=== PATIENT | male | born 1980 | race Caucasian/White ===

== ENCOUNTER 2016-12-01 12:59 | Emergency (ER) | payer OTHER ==
[~2016-12-01] VITALS: Ht 180.3 cm; Wt 113.4 kg
[~2016-12-01 12:59] MED LIST: PROVENTIL2.5 MG/3 M INH; RANITIDINE300 M1 PO; [UNRECOGNIZED DRUG - OTHER]
[2016-12-01 13:06] VITALS: BP 169/102
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
[2016-12-01] MEDS ORDERED: HYDROcodone/APAP 10/325 MG 1 TAB TAB PO ONE (13:15)
[2016-12-01] MEDS ORDERED: METHOCARBAMOL 500 MG TAB PO SCH (13:15)
--- NOTE | 2016-12-01 13:26 | NUR ---
PT WENT TO XRAY ACCOMPANIED BY IMPLEMENTATION DIRECTOR.
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
--- NOTE | 2016-12-01 13:55 | NUR ---
BACK FROM XRAY ACCOMPANIED BY AREA REPRESENTATIVE';NO ACUTE DISTRESS NOTED AT THIS TIME;WILL CONTINUE TO MONITOR PT.
--- NOTE | 2016-12-01 13:59 | NUR ---
PT AMBULATED TO RESTROOM;NO ACUTE DISTRESS NOTED AT THIS TIME;WILL CONTINUE TO MONITOR PT.
--- NOTE | 2016-12-01 14:29 | NUR ---
DR GERMAN AT BEDSIDE
--- NOTE | 2016-12-01 14:39 | NUR ---
Patient discharged with v/s stable. Written and verbal after care instructions given and explained. Patient alert, oriented and verbalized understanding of instructions. Ambulatory with steady gait. All questions addressed prior to discharge. ID band removed. Patient advised to follow up with PMD. Rx of ROBAXIN,MOTRIN AND NORCO given. Patient educated on indication of medication including possible reaction and side effects. Opportunity to ask questions provided and answered.ADVISED PT TO REFRAIN FROM STRENOUS ACTIVITIES UNTIL PAIN SUBSIDE.
[2016-12-01 14:40] VITALS: BP 153/95
== END 2016-12-01 14:39 | disposition home or self-care (01) ==
LOC: MED 12:59
DX: S30.0XXA Contusion of lower back and pelvis, initial encounter (principal); S80.02XA Contusion of left knee, initial encounter; S80.01XA Contusion of right knee, initial encounter; S09.90XA Unspecified injury of head, initial encounter; J45.909 Unspecified asthma, uncomplicated; Y04.0XXA Assault by unarmed brawl or fight, initial encounter; Y93.89 Activity, other specified; Y92.89 Other specified places as the place of occurrence of the external cause; Y99.8 Other external cause status

== ENCOUNTER 2017-06-16 21:41 | Emergency (ER) | payer OTHER ==
[~2017-06-16] VITALS: Ht 175.3 cm; Wt 106.6 kg
[~2017-06-16 21:41] MED LIST changes: +PRON INH; -PROVENTIL2.5 MG/3 M INH; -RANITIDINE300 M1 PO; -[UNRECOGNIZED DRUG - OTHER]
[2017-06-16 21:49] VITALS: BP 127/69
--- NOTE | 2017-06-16 23:24 | NUR ---
PT TAKEN TO OF2
--- NOTE | 2017-06-16 23:32 | NUR ---
Dr. Garcia evaluating patient
[2017-06-17] MEDS ORDERED: LIDOCAINE 1% 500 MG/50 ML VIAL INJ ONE (00:05)
[2017-06-17] MEDS ORDERED: oxyCODONE/APAP 5/325 MG 1 TAB TAB PO ONE (00:05)
[2017-06-17 00:50] VITALS: BP 131/67
--- NOTE | 2017-06-17 00:50 | NUR ---
Patient discharged with v/s stable. Written and verbal after care instructions given and explained. Patient verbalized understanding. Ambulatory with steady gait. All questions addressed prior to discharge. Advised to follow up with PMD.
== END 2017-06-17 00:50 | disposition home or self-care (01) ==
LOC: MED 21:41
DX: S61.211A Laceration without foreign body of left index finger without damage to nail, initial encounter (principal); J45.909 Unspecified asthma, uncomplicated; I10 Essential (primary) hypertension; Z79.899 Other long term (current) drug therapy; W27.8XXA Contact with other nonpowered hand tool, initial encounter; Y93.89 Activity, other specified; Y92.89 Other specified places as the place of occurrence of the external cause; Y99.8 Other external cause status
CPT/HCPCS: 12001; 99283; J2001

== ENCOUNTER 2022-10-20 12:40 | Emergency (ER) | payer OTHER ==
[~2022-10-20] VITALS: Ht 177.8 cm; Wt 91.7 kg
[2022-10-20 12:43] VITALS: BP 138/82
[2022-10-20] MEDS ORDERED: NACL 0.9% 1,000 ML IV ONE (12:45)
--- NOTE | 2022-10-20 12:49 | NUR ---
42/M WALKED IN C/O RIGHT CALF PAIN AND REDNESS ONSET 3 DAYS. WARM TO TOUCH. AAO4, AMBULATORY, VITALS STABLE. PMH: ASTHMA
[2022-10-20] MEDS ORDERED: cefTRIAXone 1,000 MG VIAL ONE (12:52)
[2022-10-20] MEDS ORDERED: SULF-58 PO (13:06)
[2022-10-20] MEDS ORDERED: CEPH-588 PO (13:06)
[2022-10-20] MEDS ORDERED: IBUP-1842 PO (13:06)
[2022-10-20] MEDS ORDERED: KETOROLAC 30 MG/ML VIAL IVP ONE (13:15)
[2022-10-20] MEDS ORDERED: KETOROLAC 30 MG/ML VIAL IM ONE (13:15)
[2022-10-20 14:05] VITALS: BP 137/75
== END 2022-10-20 14:05 | disposition home or self-care (01) ==
LOC: MED 12:40
DX: L03.115 Cellulitis of right lower limb (principal); J45.909 Unspecified asthma, uncomplicated; I10 Essential (primary) hypertension; Z79.899 Other long term (current) drug therapy
CPT/HCPCS: 96365; 96375; 99284; J0696; J1885; J7030

== ENCOUNTER 2023-10-15 15:33 | Emergency (ER) | payer OTHER ==
[~2023-10-15] VITALS: Ht 177.8 cm; Wt 79.4 kg
[~2023-10-15 15:33] MED LIST changes: +CEPH-588 PO; +IBUP-1842 PO; +SULF-58 PO
[2023-10-15 15:38] VITALS: BP 122/74; PULSE 106; RESP 22; TEMP 97.8; O2SAT 93
[2023-10-15] MEDS ORDERED: ALBUTEROL SULFATE/IPRATROPIU 3 ML SOL IH ONE ×3 (15:38→16:00)
[2023-10-15 15:40] VITALS: BP 120/80; TEMP 97.8
[2023-10-15] MEDS ORDERED: ALBUTEROL 0.083% 2.5 MG/3 ML NEBU INH ONE ×2 (15:40→16:00)
[2023-10-15] MEDS ORDERED: predniSONE 20 MG TAB PO ONE (15:40)
[2023-10-15 15:42] VITALS: PULSE 103; RESP 22; O2SAT 92
[2023-10-15] MEDS ORDERED: ALBU0.0912 INH (16:16)
[2023-10-15] MEDS ORDERED: PRED20TA5 PO (16:16)
[2023-10-15 16:51] VITALS: PULSE 102; RESP 18; O2SAT 98
== END 2023-10-15 17:30 | disposition home or self-care (01) ==
LOC: MED 15:33
DX: J45.901 Unspecified asthma with (acute) exacerbation (principal); F17.200 Nicotine dependence, unspecified, uncomplicated; Z79.899 Other long term (current) drug therapy; Z79.2 Long term (current) use of antibiotics; Z79.1 Long term (current) use of non-steroidal anti-inflammatories (NSAID)
CPT/HCPCS: 94640; 99284; J7512; J7613

== ENCOUNTER 2023-12-21 20:00 | Emergency (ER) | payer OTHER ==
[~2023-12-21] VITALS: Ht 177.8 cm; Wt 84.4 kg
[~2023-12-21 20:00] MED LIST changes: +ALBU0.0912 INH; +PRED20TA5 PO
[2023-12-21 20:10] VITALS: BP 114/73; PULSE 101; RESP 18; TEMP 97.7; O2SAT 96
[2023-12-21] MEDS: ALBUTEROL 0.083% 2.5 MG/3 ML NEBU INH ONE (21:21)
[2023-12-21 21:22] VITALS: PULSE 95; RESP 18; O2SAT 96
[2023-12-21] MEDS: IPRATROPIUM 0.02% 0.5 MG/2.5 ML NEBU INH ONE (21:22)
[2023-12-21] MEDS ORDERED: PROM118S5 PO (21:31)
[2023-12-21] MEDS ORDERED: ALBU0.0912 IH (21:31)
[2023-12-21] MEDS ORDERED: PRED20TA5 PO (21:31)
== END 2023-12-21 21:58 | disposition home or self-care (01) ==
LOC: MED 20:00
DX: J45.909 Unspecified asthma, uncomplicated (principal); Z79.899 Other long term (current) drug therapy
CPT/HCPCS: 94640; 99283; J7613; J7644

== ENCOUNTER 2024-01-05 02:55 | Emergency (ER) | payer OTHER ==
[~2024-01-05] VITALS: Ht 177.8 cm; Wt 81.6 kg
[~2024-01-05 02:55] MED LIST changes: +ALBU0.0912 IH; +PROM118S5 PO
[2024-01-05 02:58] VITALS: BP 126/89; PULSE 68; RESP 18; TEMP 97.5; O2SAT 99
[2024-01-05] MEDS ORDERED: methylPREDNISolone SS 125 MG in WATER STERILE 2 ML IV SCH (03:32)
[2024-01-05 03:34] VITALS: BP 125/80; PULSE 100; RESP 17
[2024-01-05] MEDS: NACL 0.9% 1,000 ML IV ONE (03:47)
[2024-01-05] MEDS: ALBUTEROL 0.083% 2.5 MG/3 ML NEBU INH ONE (03:48)
[2024-01-05 04:10] LABS: BASOPHILS # (AUTO) 0.1 K/uL (0.00-0.22); BASOPHILS % (AUTO) 0.8 % (0.0-2.0); EOSINOPHILS # (AUTO) 1.1 K/uL (0-0.4); EOSINOPHILS % (AUTO) 12.6 % (0.0-4.0); HEMATOCRIT 40.9 % (36-52); HEMOGLOBIN 13.5 g/dL (12.0-18.0); LYMPHOCYTES # (AUTO) 1.4 K/uL (2.0-11.5); MEAN CORPUSCULAR HEMOGLOBIN 27 pg (27-31); MEAN CORPUSCULAR HGB CONC 33 g/dL (33-37); MEAN CORPUSCULAR VOLUME 82.8 fL (80-94); MONOCYTES # (AUTO) 0.5 K/uL (0.8-1.0); MONOCYTES % (AUTO) 5.9 % (1.7-9.3); NEUTROPHILS # (AUTO) 5.6 K/uL (1.8-7.7); NEUTROPHILS % (AUTO) 64.7 % (42.2-75.2); PLATELET COUNT (AUTO) 295 K/uL (140-450); RED BLOOD CELL COUNT(AUTO) 4.94 MIL/uL (4.20-6.10); RED CELL DISTRIBUTION WIDTH 16.1 % (11.6-13.7); WHITE BLOOD COUNT (AUTO) 8.6 K/uL (4.8-10.8)
[2024-01-05] MEDS: MAG SULF 2000 MG/WATER PREMIX 50 ML IV ONE (04:17)
[2024-01-05 04:25] VITALS: O2SAT 94
[2024-01-05 04:42] LABS: ANION GAP 9.3 (8-16); CALCIUM 8.8 mg/dL (8.5-10.1); CARBON DIOXIDE 32.9 mmol/L (21-32); CREATININE 0.7 mg/dL (0.6-1.3); POTASSIUM 4.2 mmol/L (3.5-5.1)
[2024-01-05 04:43] LABS: ALBUMIN 3.3 g/dL (3.4-5.0); TOTAL BILIRUBIN 45.2 mg/dL (0.0-1.0); TOTAL PROTEIN, SERUM 6.6 g/dL (6.4-8.2)
[2024-01-05] MEDS ORDERED: AZIT250T4 PO (06:04)
[2024-01-05] MEDS ORDERED: METH4TAB1 PO (06:04)
[2024-01-05] MEDS ORDERED: ALBU0.0912 INH (06:04)
== END 2024-01-05 06:12 | disposition home or self-care (01) ==
LOC: MED 02:55
DX: J45.901 Unspecified asthma with (acute) exacerbation (principal); Z79.1 Long term (current) use of non-steroidal anti-inflammatories (NSAID); Z79.899 Other long term (current) drug therapy; Z87.891 Personal history of nicotine dependence; Z71.6 Tobacco abuse counseling
CPT/HCPCS: 36415; 71045; 71250; 80048; 80076; 85025; 94640; 96365; 96366; 99285; J3475; J7613

== ENCOUNTER 2024-01-19 20:40 | Emergency (ER) | payer OTHER ==
[~2024-01-19] VITALS: Ht 177.8 cm; Wt 86.2 kg
[~2024-01-19 20:40] MED LIST changes: +AZIT250T4 PO; +METH4TAB1 PO
[2024-01-19 21:04] VITALS: BP 118/86; PULSE 104; RESP 22; TEMP 98; O2SAT 90
[2024-01-19] MEDS: predniSONE 20 MG TAB PO ONE (21:19)
[2024-01-19] MEDS: ALBUTEROL 0.083% 2.5 MG/3 ML NEBU INH ONE ×2 (21:19→22:04)
[2024-01-19] MEDS: IPRATROPIUM 0.02% 0.5 MG/2.5 ML NEBU INH ONE ×2 (21:20→22:04)
[2024-01-19 21:26] VITALS: PULSE 96; RESP 20; O2SAT 90
[2024-01-19 22:24] VITALS: PULSE 95; RESP 20; O2SAT 91
[2024-01-19] MEDS ORDERED: ALBU0.0912 IH (22:57)
[2024-01-19] MEDS ORDERED: BECL10.62 INH (22:57)
[2024-01-19] MEDS ORDERED: PRED20TA5 PO (22:57)
[2024-01-19 23:01] VITALS: BP 124/86; PULSE 92; RESP 20; TEMP 98; O2SAT 93
== END 2024-01-19 23:01 | disposition home or self-care (01) ==
LOC: MED 20:40
DX: J45.41 Moderate persistent asthma with (acute) exacerbation (principal); J20.8 Acute bronchitis due to other specified organisms; B97.89 Other viral agents as the cause of diseases classified elsewhere; J96.01 Acute respiratory failure with hypoxia; Z79.899 Other long term (current) drug therapy
CPT/HCPCS: 71045; 94640; 99291; J7512; J7613; J7644

== ENCOUNTER 2024-02-13 06:22 | Emergency (ER) | payer OTHER ==
[~2024-02-13] VITALS: Ht 172.7 cm; Wt 82.1 kg
[~2024-02-13 06:22] MED LIST changes: +BECL10.62 INH
[2024-02-13 06:25] VITALS: BP 122/87; PULSE 111; RESP 22; TEMP 99.3; O2SAT 96
[2024-02-13] MEDS: predniSONE 20 MG TAB PO ONE (06:47)
[2024-02-13] MEDS: ALBUTEROL 0.083% 2.5 MG/3 ML NEBU INH ONE ×2 (06:52→09:34)
[2024-02-13] MEDS: IPRATROPIUM 0.02% 0.5 MG/2.5 ML NEBU INH ONE (06:52)
[2024-02-13] MEDS ORDERED: IPRATROPIUM 0.02% 0.5 MG/2.5 ML NEBU INH ONE (07:25)
[2024-02-13] MEDS ORDERED: ALBUTEROL 0.083% 2.5 MG/3 ML NEBU INH ONE (07:25)
[2024-02-13 08:47] LABS: HEMATOCRIT 44.1 % (36-52); HEMOGLOBIN 14.5 g/dL (12.0-18.0); MEAN CORPUSCULAR HEMOGLOBIN 28 pg (27-31); MEAN CORPUSCULAR HGB CONC 33 g/dL (33-37); MEAN CORPUSCULAR VOLUME 83.8 fL (80-94); RED BLOOD CELL COUNT(AUTO) 5.26 MIL/uL (4.20-6.10)
[2024-02-13 08:48] LABS: BASOPHILS # (AUTO) 0.1 K/uL (0.00-0.22); BASOPHILS % (AUTO) 0.9 % (0.0-2.0); EOSINOPHILS # (AUTO) 1.4 K/uL (0-0.4); EOSINOPHILS % (AUTO) 10.6 % (0.0-4.0); LYMPHOCYTES # (AUTO) 1.4 K/uL (2.0-11.5); MONOCYTES # (AUTO) 0.6 K/uL (0.8-1.0); MONOCYTES % (AUTO) 4.9 % (1.7-9.3); NEUTROPHILS # (AUTO) 9.4 K/uL (1.8-7.7); NEUTROPHILS % (AUTO) 72.6 % (42.2-75.2); PLATELET COUNT (AUTO) 303 K/uL (140-450); RED CELL DISTRIBUTION WIDTH 14.5 % (11.6-13.7)
[2024-02-13 09:14] LABS: ANION GAP 9.1 (8-16); CALCIUM 9.2 mg/dL (8.5-10.1); CARBON DIOXIDE 35.1 mmol/L (21-32); CREATININE 0.8 mg/dL (0.6-1.3); POTASSIUM 4.2 mmol/L (3.5-5.1)
[2024-02-13 09:34] VITALS: PULSE 99; RESP 20; O2SAT 92
[2024-02-13 09:35] VITALS: O2SAT 92
[2024-02-13] MEDS ORDERED: ALBU0.0912 INH (10:28)
[2024-02-13] MEDS ORDERED: FLUT1DSK IH (10:28)
[2024-02-13] MEDS ORDERED: AMOX500C25 PO (10:30)
[2024-02-13] MEDS ORDERED: AZIT250T4 PO (10:30)
[2024-02-13 11:02] VITALS: BP 131/76; PULSE 78; RESP 16; TEMP 96.9; O2SAT 96
[2024-02-19] MEDS ORDERED: FLUT1DSK4 IH (02:50)
[2024-02-19] MEDS ORDERED: PRED20TA5 PO (03:16)
== END 2024-02-13 10:58 | disposition home or self-care (01) ==
LOC: MED 06:22
DX: J45.901 Unspecified asthma with (acute) exacerbation (principal); Z79.899 Other long term (current) drug therapy
CPT/HCPCS: 36415; 71045; 80048; 85025; 93005; 94640; 99285; J7512; J7613; J7644

== ENCOUNTER 2024-03-06 20:59 | Emergency (ER) | payer OTHER ==
[~2024-03-06] VITALS: Ht 177.8 cm; Wt 84.4 kg
[~2024-03-06 20:59] MED LIST changes: +AMOX500C25 PO; +FLUT1DSK IH; +FLUT1DSK4 IH
[2024-03-06 21:03] VITALS: BP 128/80; PULSE 86; RESP 18; TEMP 97.6; O2SAT 89
[2024-03-06] MEDS: ALBUTEROL 0.083% 2.5 MG/3 ML NEBU INH ONE (21:19)
[2024-03-06] MEDS ORDERED: ALBUTEROL SULFATE/IPRATROPIU 3 ML SOL IH ONE (21:21)
[2024-03-06] MEDS: ALBUTEROL SULFATE/IPRATROPIU 3 ML SOL IH ONE (21:22)
[2024-03-06 21:30] VITALS: PULSE 96; RESP 24; O2SAT 87; O2SAT 98
[2024-03-06] MEDS: predniSONE 20 MG TAB PO ONE (21:55)
[2024-03-06 21:57] VITALS: BP 120/80; PULSE 94; RESP 18; TEMP 97.6; O2SAT 97
[2024-03-06] MEDS ORDERED: ALBU0.0912 IH (23:06)
[2024-03-06] MEDS ORDERED: PRED20TA5 PO (23:06)
== END 2024-03-06 23:09 | disposition home or self-care (01) ==
LOC: MED 20:59
DX: J45.901 Unspecified asthma with (acute) exacerbation (principal); I10 Essential (primary) hypertension; Z79.899 Other long term (current) drug therapy
CPT/HCPCS: 71045; 93005; 94640; 99283; J7512; J7613

== ENCOUNTER 2024-03-16 10:52 | Emergency (ER) | payer OTHER ==
[~2024-03-16] VITALS: Ht 177.8 cm; Wt 81.6 kg
[2024-03-16 11:17] VITALS: BP 132/111; PULSE 98; RESP 22; TEMP 97.3; O2SAT 87
[2024-03-16 11:27] VITALS: PULSE 90; RESP 20; O2SAT 94
[2024-03-16] MEDS: ALBUTEROL SULFATE/IPRATROPIU 3 ML SOL IH ONE ×3 (11:27→12:48)
[2024-03-16] MEDS: NACL 0.9% 1,000 ML IV ONE (11:36)
[2024-03-16] MEDS: MAG SULF 2000 MG/WATER PREMIX 50 ML IV ONE (11:36)
[2024-03-16] MEDS: methylPREDNISolone SS 125 MG/2 ML VIAL IVP ONE (11:37)
[2024-03-16 11:45] LABS: BASOPHILS # (AUTO) 0.2 K/uL (0.00-0.22); BASOPHILS % (AUTO) 2.4 % (0.0-2.0); EOSINOPHILS # (AUTO) 0.9 K/uL (0-0.4); EOSINOPHILS % (AUTO) 13.2 % (0.0-4.0); HEMATOCRIT 41.7 % (36-52); HEMOGLOBIN 13.7 g/dL (12.0-18.0); LYMPHOCYTES # (AUTO) 1.9 K/uL (2.0-11.5); LYMPHOCYTES % (AUTO) 28.7 % (20.5-51.1); MEAN CORPUSCULAR HEMOGLOBIN 28 pg (27-31); MEAN CORPUSCULAR HGB CONC 33 g/dL (33-37); MEAN CORPUSCULAR VOLUME 84.3 fL (80-94); MONOCYTES # (AUTO) 0.5 K/uL (0.8-1.0); MONOCYTES % (AUTO) 7.7 % (1.7-9.3); NEUTROPHILS # (AUTO) 3.2 K/uL (1.8-7.7); PLATELET COUNT (AUTO) 258 K/uL (140-450); RED BLOOD CELL COUNT(AUTO) 4.95 MIL/uL (4.20-6.10); RED CELL DISTRIBUTION WIDTH 15.5 % (11.6-13.7); WHITE BLOOD COUNT (AUTO) 6.7 K/uL (4.8-10.8)
[2024-03-16 12:04] LABS: ANION GAP 9.7 (8-16); CALCIUM 8.3 mg/dL (8.5-10.1); CARBON DIOXIDE 33.3 mmol/L (21-32); CREATININE 0.7 mg/dL (0.6-1.3)
[2024-03-16 12:49] VITALS: O2SAT 95
[2024-03-16 12:50] VITALS: PULSE 82; RESP 12; O2SAT 95
[2024-03-16] MEDS ORDERED: ALBU0.0912 INH (13:27)
[2024-03-16 13:53] VITALS: BP 132/111; PULSE 82; RESP 12; TEMP 97.3; O2SAT 95
== END 2024-03-16 13:53 | disposition left against medical advice (07) ==
LOC: MED 10:52
DX: J45.901 Unspecified asthma with (acute) exacerbation (principal); I10 Essential (primary) hypertension; F17.210 Nicotine dependence, cigarettes, uncomplicated; Z71.6 Tobacco abuse counseling; Z79.1 Long term (current) use of non-steroidal anti-inflammatories (NSAID); Z79.2 Long term (current) use of antibiotics; Z79.899 Other long term (current) drug therapy
CPT/HCPCS: 36415; 71045; 80048; 82948; 83880; 84484; 85025; 93005; 94640; 96365; 96375; 99285; J2919; J3475; J7030; Q0092

== ENCOUNTER 2024-04-01 05:39 | Emergency (ER) | payer OTHER ==
[~2024-04-01] VITALS: Ht 177.8 cm; Wt 81.6 kg
[2024-04-01 05:42] VITALS: BP 112/82; PULSE 84; RESP 20; TEMP 97.4; O2SAT 99
[2024-04-01] MEDS: predniSONE 20 MG TAB PO ONE (06:07)
[2024-04-01] MEDS ORDERED: PRON INH (06:28)
[2024-04-01] MEDS: ALBUTEROL SULFATE/IPRATROPIU 3 ML SOL IH ONE (06:44)
[2024-04-01] MEDS: ALBUTEROL 0.083% 2.5 MG/3 ML NEBU INH ONE (06:45)
[2024-04-01 06:46] VITALS: PULSE 93; RESP 18; O2SAT 90; O2SAT 93
[2024-04-01 07:14] VITALS: O2SAT 90
== END 2024-04-01 07:16 | disposition home or self-care (01) ==
LOC: MED 05:39
DX: J45.901 Unspecified asthma with (acute) exacerbation (principal); F17.200 Nicotine dependence, unspecified, uncomplicated; Z79.899 Other long term (current) drug therapy
CPT/HCPCS: 94640; 99283; J7512; J7613

== ENCOUNTER 2024-04-21 18:25 | Emergency (ER) | payer OTHER ==
[~2024-04-21] VITALS: Ht 175.3 cm; Wt 81.6 kg
[2024-04-21 18:32] VITALS: BP 128/77; PULSE 110; RESP 22; TEMP 98.5; O2SAT 91
[2024-04-21] MEDS: ALBUTEROL SULFATE/IPRATROPIU 3 ML SOL IH ONE (18:44)
[2024-04-21 18:46] VITALS: PULSE 106; RESP 20; O2SAT 98
[2024-04-21] MEDS ORDERED: methylPREDNISolone SS 125 MG in WATER STERILE 2 ML IV ONE (18:50)
[2024-04-21] MEDS: MAG SULF 2000 MG/WATER PREMIX 50 ML IV ONE (19:22)
[2024-04-21] MEDS: methylPREDNISolone SS 125 MG/2 ML VIAL IVP ONE (19:27)
[2024-04-21 19:41] LABS: AMPHETAMINE, URINE POSITIVE ng/ml (NEG <=1000); BARBITURATE, URINE NEGATIVE ng/ml (NEG <=200); BENZODIAZEPINE, URINE NEGATIVE ng/mL (NEG <=200); CANNABINOID, URINE NEGATIVE ng/mL (NEG <=50); COCAINE, URINE NEGATIVE ng/mL (NEG <=300); PHENCYCLIDINE SCREEN,URINE NEGATIVE ng/mL (NEG <=25)
[2024-04-21 19:42] LABS: OPIATE, URINE NEGATIVE ng/mL (NEG <=2000)
[2024-04-21 19:47] VITALS: O2SAT 95
[2024-04-21 19:48] VITALS: BP 113/74; PULSE 101; RESP 16; O2SAT 95
[2024-04-21] MEDS ORDERED: PRED20TA5 PO (20:46)
== END 2024-04-21 21:50 | disposition home or self-care (01) ==
LOC: MED 18:25
DX: J45.901 Unspecified asthma with (acute) exacerbation (principal); F15.90 Other stimulant use, unspecified, uncomplicated; Z71.6 Tobacco abuse counseling; Z79.899 Other long term (current) drug therapy
CPT/HCPCS: 80305; 94640; 96365; 96366; 96375; 99284; J2919; J3475

== ENCOUNTER 2024-06-03 22:04 | Emergency (ER) | payer OTHER ==
[~2024-06-03] VITALS: Ht 172.7 cm; Wt 81.6 kg
[2024-06-03 22:10] VITALS: BP 113/55; PULSE 99; RESP 20; TEMP 98.3; O2SAT 89
[2024-06-03] MEDS ORDERED: ALBUTEROL SULFATE/IPRATROPIU 3 ML SOL IH ONE (22:14)
[2024-06-03] MEDS: methylPREDNISolone SS 125 MG/2 ML VIAL IM ONE (22:23)
[2024-06-03] MEDS: ALBUTEROL SULFATE/IPRATROPIU 3 ML SOL IH ONE ×3 (22:25→23:13)
[2024-06-03 22:40] VITALS: PULSE 100; RESP 22; RESP 24; O2SAT 99
[2024-06-03 23:16] VITALS: PULSE 91; RESP 13; O2SAT 95
[2024-06-04] MEDS ORDERED: PRED20TA5 PO (00:34)
[2024-06-04] MEDS ORDERED: ALBU0.0912 IH (00:34)
[2024-06-04 00:41] VITALS: BP 116/68; PULSE 91; RESP 13; TEMP 98.3; O2SAT 95
== END 2024-06-04 00:41 | disposition home or self-care (01) ==
LOC: MED 22:04
DX: J45.901 Unspecified asthma with (acute) exacerbation (principal); Z79.899 Other long term (current) drug therapy
CPT/HCPCS: 94640; 96372; 99284; J2919

== ENCOUNTER 2024-07-05 23:02 | Emergency (ER) | payer OTHER ==
[~2024-07-05] VITALS: Ht 177.8 cm; Wt 88.5 kg
[2024-07-05 23:12] VITALS: BP 135/82; PULSE 102; RESP 18; TEMP 98; O2SAT 93
[2024-07-05] MEDS: ALBUTEROL 0.083% 2.5 MG/3 ML NEBU INH ONE (23:33)
[2024-07-05 23:35] VITALS: PULSE 105; RESP 22; O2SAT 96
[2024-07-05 23:46] VITALS: PULSE 110; RESP 20; O2SAT 100
[2024-07-05] MEDS: ALBUTEROL SULFATE/IPRATROPIU 3 ML SOL IH ONE (23:46)
[2024-07-05] MEDS: predniSONE 20 MG TAB PO ONE (23:54)
[2024-07-06] MEDS ORDERED: ALBU0.0912 IH (01:28)
[2024-07-06] MEDS ORDERED: PRED20TA5 PO (01:28)
[2024-07-06 01:30] VITALS: BP 135/82; PULSE 110; RESP 20; TEMP 98; O2SAT 100
== END 2024-07-06 01:30 | disposition home or self-care (01) ==
LOC: MED 23:02
DX: J45.901 Unspecified asthma with (acute) exacerbation (principal); R03.0 Elevated blood-pressure reading, without diagnosis of hypertension; Z79.899 Other long term (current) drug therapy
CPT/HCPCS: 94640; 99283; J7512; J7613

== ENCOUNTER 2024-07-13 03:34 | Emergency (ER) | payer OTHER ==
[~2024-07-13] VITALS: Ht 175.3 cm; Wt 86.2 kg
[2024-07-13 03:58] VITALS: BP 123/90; PULSE 48; RESP 20; TEMP 98.2; O2SAT 91
[2024-07-13] MEDS: predniSONE 20 MG TAB PO ONE ×2 (04:05→05:40)
[2024-07-13] MEDS ORDERED: ALBUTEROL SULFATE/IPRATROPIU 3 ML SOL IH ONE (04:06)
[2024-07-13 04:09] VITALS: O2SAT 88
[2024-07-13] MEDS: ALBUTEROL SULFATE/IPRATROPIU 3 ML SOL IH ONE (04:09)
[2024-07-13 06:03] VITALS: BP 123/90; PULSE 48; RESP 20; TEMP 98.2; O2SAT 98
== END 2024-07-13 06:05 | disposition home or self-care (01) ==
LOC: MED 03:34
DX: J45.901 Unspecified asthma with (acute) exacerbation (principal); R03.0 Elevated blood-pressure reading, without diagnosis of hypertension; Z79.899 Other long term (current) drug therapy
CPT/HCPCS: 94640; 99283; J7512